=== PATIENT | female | born 1950 | race Caucasian/White ===

== ENCOUNTER 2016-08-07 17:19 | Inpatient (IN) | payer OTHER ==
[~2016-08-07] VITALS: Ht 167.6 cm; Wt 47.4 kg
[~2016-08-07 17:19] MED LIST: ALPR0.25 PO; AMOX1TAB61 PO; CITA20TA5 PO; CYCL-259 PO; DULO30CA2 PO; ESTR1.25 PO; FERR325T16 PO; FERR325T20 PO; HYDR-3240 PO; LEVO200T5 PO; LEVO88TA4 PO; LOSA1TAB18 PO; MELO-184 PO; METO25TA9 PO; OMEP40CA6 PO; PRED20TA PO; RANI150T4 PO; TRAZ50TA18 PO
[2016-08-07] MEDS ORDERED: HYDROmorphone 1 MG/ML, 1ML ONE ×3 (17:44→19:44)
[2016-08-07] MEDS ORDERED: ONDANSETRON 2MG/ML, 2ML ONE (17:44)
[2016-08-07] MEDS ORDERED: CEFOTETAN PMX 1GM/50ML 50 ML ONE (21:34)
[2016-08-07] MEDS: CYCLOBENZAPRINE 10 MG TABLET PO SCH (23:00)
[2016-08-07] MEDS: MELOXICAM 15 MG TABLET PO SCH (23:00)
[2016-08-07] MEDS ORDERED: MORPHINE SULFATE 4 MG/ML, 1ML ONE (23:12)
[2016-08-08] MEDS: OMEPRAZOLE 20 MG CAPSULE.DR PO SCH ×2 (07:30→09:30)
[2016-08-08] MEDS: TRAZODONE 100MG TABLET PO SCH (07:30)
[2016-08-08] MEDS: DULOXETINE 30 MG CAPSULE.DR PO SCH (08:50)
[2016-08-08] MEDS: LEVOTHYROXINE 88 MCG TABLET PO SCH ×2 (08:50→09:30)
[2016-08-08] MEDS: MELOXICAM 15 MG TABLET PO SCH (09:00)
[2016-08-08] MEDS ORDERED: MORPHINE SULFATE 4 MG/ML, 1ML ONE ×3 (10:00→17:16)
[2016-08-08] MEDS ORDERED: HYDROcodone/APAP 5/325 TABLET PO PRN (12:30)
[2016-08-08] MEDS: LACTATED RINGERS 1,000 ML IV SCH ×2 (12:30→22:30)
[2016-08-08] MEDS ORDERED: HYDROcodone/APAP 10/325 MG TABLET PO PRN (14:00)
[2016-08-08] MEDS ORDERED: MIDAZOLAM 1 MG/ML, 2ML ONE ×2 (16:44→20:23)
[2016-08-08] MEDS ORDERED: FENTANYL PF 250 MCG/5ML ONE ×2 (16:44→20:23)
[2016-08-08] MEDS ORDERED: morphine SULFATE 10 MG/ML, 1ML IVPush ONE (17:30)
[2016-08-08] MEDS ORDERED: BUPIVACAINE/PF-EPI 0.5% 1:200K ONE (18:14)
[2016-08-08] MEDS ORDERED: morphine SULFATE 10 MG/ML, 1ML ONE (18:28)
[2016-08-08] MEDS: MORPHINE SULFATE 4 MG/ML, 1ML IV PRN ×3 (18:45→19:50)
[2016-08-08] MEDS ORDERED: ONDANSETRON 2MG/ML, 2ML ONE ×2 (19:05→20:51)
[2016-08-08 19:45] VITALS: BP 147/77
[2016-08-08] MEDS ORDERED: BUPIVACAINE/PF-EPI 0.5% 1:200K IM ONE (20:39)
[2016-08-08] MEDS ORDERED: ROCURONIUM 10 MG/ML ONE (20:51)
[2016-08-08] MEDS ORDERED: NEOSTIGMINE 1 MG/ML, 10ML ONE (20:51)
[2016-08-08] MEDS ORDERED: DEXAMETHASONE 4 MG/ML, 1ML ONE (20:51)
[2016-08-08] MEDS ORDERED: GLYCOPYRROLATE 0.2MG/1ML ONE (20:51)
[2016-08-08] MEDS ORDERED: PROPOFOL 10 MG/ML, 20ML ONE (20:51)
[2016-08-08] MEDS ORDERED: CEFOTETAN 2 GM ONE (20:51)
[2016-08-08] MEDS ORDERED: PROMETHAZINE 25 MG/ML, 1ML IV PRN (21:00)
[2016-08-08] MEDS ORDERED: OXYcodone 5 MG/5 ML ORAL.SOL UDC PO PRN (21:00)
[2016-08-08] MEDS: CYCLOBENZAPRINE 10 MG TABLET PO SCH ×2 (21:00→23:00)
[2016-08-08] MEDS ORDERED: FENTANYL PF 100 MCG/2ML IV PRN (21:00)
[2016-08-08] MEDS ORDERED: LABETALOL 5MG/ML, 20ML IV PRN (21:00)
[2016-08-08] MEDS ORDERED: hydrALAzine 20 MG/ML, 1ML IV PRN (21:00)
[2016-08-08] MEDS ORDERED: HYDROmorphone 1 MG/ML, 1ML IV PRN (21:00)
[2016-08-08] MEDS ORDERED: ACETAMINOPHEN 325 MG TABLET PO PRN (21:00)
[2016-08-08] MEDS ORDERED: METOCLOPRAMIDE 5 MG/ML, 2ML IV PRN (21:00)
[2016-08-08] MEDS: ALPRazolam 1MG TABLET PO SCH (21:00)
[2016-08-08] MEDS ORDERED: ONDANSETRON 2MG/ML, 2ML IVPush PRN (21:00)
[2016-08-08] MEDS ORDERED: MEPERIDINE/PF 25MG/0.5ML IVPush PRN (21:00)
[2016-08-08] MEDS ORDERED: OXYcodone 5 MG/5 ML ORAL.SOL UDC ONE (22:25)
[2016-08-08] MEDS ORDERED: ONDANSETRON 2MG/ML, 2ML IV PRN (23:00)
[2016-08-08] MEDS ORDERED: PLEASE ENTER HEIGHT AND WEIGHT MC SCH (23:00)
[2016-08-08 23:22] VITALS: BP 163/80
[2016-08-09] MEDS: LACTATED RINGERS 1,000 ML IV SCH ×2 (00:31→06:01)
[2016-08-09] MEDS: ALPRazolam 1MG TABLET PO SCH (01:29)
[2016-08-09] MEDS: TRAZODONE 100MG TABLET PO SCH (01:29)
[2016-08-09] MEDS ORDERED: PROCHLORPERAZINE 5 MG/ML, 2ML IVPush PRN (02:30)
[2016-08-09 03:00] VITALS: BP 97/51
[2016-08-09] MEDS ORDERED: hydrALAzine 20 MG/ML, 1ML IV PRN (03:30)
[2016-08-09] MEDS ORDERED: ENOXAPARIN 40 MG/0.4 ML SQ SCH (03:30)
[2016-08-09] MEDS ORDERED: DIPHENHYDRAMINE 25 MG CAPSULE PO PRN (03:30)
[2016-08-09] MEDS ORDERED: ACETAMINOPHEN 325 MG TABLET PO PRN (03:30)
[2016-08-09] MEDS ORDERED: LORazepam 1MG TABLET PO PRN (03:30)
[2016-08-09] MEDS ORDERED: ACETAMINOPHEN 650 MG SUPP PR PRN (03:30)
[2016-08-09] MEDS ORDERED: morphine SULFATE 10 MG/ML, 1ML IV PRN (03:30)
[2016-08-09] MEDS ORDERED: DIPHENHYDRAMINE 50 MG/ML, 1ML IV PRN (03:30)
[2016-08-09] MEDS ORDERED: LORazepam 2 MG/ML, 1ML IV PRN (03:30)
[2016-08-09] MEDS ORDERED: KETOROLAC 30 MG/1 ML IV PRN (03:30)
[2016-08-09] MEDS: LEVOTHYROXINE 88 MCG TABLET PO SCH (06:01)
[2016-08-09 07:15] LABS: ASPARTATE AMINO TRANSFERASE 44 U/L (15-37); BLOOD UREA NITROGEN 9 mg/dL (7-18)
[2016-08-09 07:46] VITALS: BP 107/56
[2016-08-09] MEDS: DULOXETINE 30 MG CAPSULE.DR PO SCH (09:27)
[2016-08-09] MEDS: MELOXICAM 15 MG TABLET PO SCH (09:27)
[2016-08-09] MEDS: OMEPRAZOLE 20 MG CAPSULE.DR PO SCH (09:27)
[2016-08-09 11:34] VITALS: BP 109/58
[2016-08-09] MEDS ORDERED: HYDR-3307 PO (12:30)
[2016-08-09] MEDS ORDERED: DOCU-30 PO (12:30)
[2016-08-09] MEDS ORDERED: ONDA4TAB7 PO (12:30)
[2016-08-10 09:13] LABS: ASPARTATE AMINO TRANSFERASE 13 U/L (15-37); BLOOD UREA NITROGEN 16 mg/dL (7-18)
[2016-08-10 09:29] LABS: ASPARTATE AMINO TRANSFERASE 6 U/L (15-37); BLOOD UREA NITROGEN 10 mg/dL (7-18)
== END 2016-08-09 12:50 | disposition home or self-care (01) | DRG 417 ==
LOC: ED 17:19 → EDIP 21:40 → 4NOR 08-08 20:27 → DCLOUNGE 08-09 12:15
PROVIDERS: ADMIT Internal Medicine; ATTEND Internal Medicine
PROC: 0FT44ZZ Resection of Gallbladder, Percutaneous Endoscopic Approach (ICD-10-PCS; principal; 2016-08-08 15:15)
DX: K80.12 Calculus of gallbladder with acute and chronic cholecystitis without obstruction (principal); E43 Unspecified severe protein-calorie malnutrition; D18.00 Hemangioma unspecified site; E03.9 Hypothyroidism, unspecified; I10 Essential (primary) hypertension; K21.9 Gastro-esophageal reflux disease without esophagitis; K82.8 Other specified diseases of gallbladder; F32.9 Major depressive disorder, single episode, unspecified; M79.7 Fibromyalgia; G89.29 Other chronic pain; M54.2 Cervicalgia; M54.9 Dorsalgia, unspecified; Z85.41 Personal history of malignant neoplasm of cervix uteri; Z87.11 Personal history of peptic ulcer disease; Z79.899 Other long term (current) drug therapy; Z90.710 Acquired absence of both cervix and uterus; Z87.19 Personal history of other diseases of the digestive system
CPT/HCPCS: 36415; 76700; 80048; 80053; 80076; 81001; 82040; 83690; 85025; 85610; 85730; 87086; 88304; 99285; J1100; J1650; J1885; J2250; J2405; J2704; J2710; J3010; J3490; J2270; J7120; S0074